=== PATIENT | male | born 1945 | race Caucasian/White ===

== ENCOUNTER 2024-07-25 12:57 | Inpatient (IN) ==
[2024-07-25 17:15] LABS: ABS Basophils 0.1 10^3/uL (0.0-0.1); ABS Eosinophils 0.4 10^3/uL (0.0-0.5); ABS Lymphocytes 3.4 10^3/uL (1.0-4.8); ABS Monocytes 0.7 10^3/uL (0.0-1.1); ABS Nucleated RBC 0.01 10^3/ul; Eosinophil % 4.4 %; Hematocrit 45.5 % (38-53); Hemoglobin 15.6 g/dL (13.2-16.3); Lymphocyte % 35.7 %; Mean Corpuscular Hemoglobin 32.7 pg (27-33); Mean Corpuscular Hgb Conc 34.3 g/dL (31-36); Mean Corpuscular Volume 95.2 fL (80-97); Mean Platelet Volume 7.2 fL (7.5-11.2); Nucleated Red Blood Cells % 0.1 %/100WBC (0.0-0.8); Platelet Count 167 10^3/uL (150-450); Red Blood Count 4.78 10^6/uL (4.06-5.63); Red Cell Distribution Width 16.8 % (12-17); White Blood Count 9.6 10^3/uL (3.6-10.2)
[2024-07-25 17:42] LABS: Albumin 4.2 g/dL (3.5-5.7); Albumin/Globulin Ratio 1.3 (1-3); Calcium 10.1 mg/dL (8.6-10.3); Creatinine, Serum 1.22 mg/dL (0.67-1.17); Globulin 3.3 g/dL (2-4); HDL Cholesterol 37.8 mg/dL; Magnesium 1.9 mg/dL (1.9-2.7); Total Bilirubin 0.5 mg/dL (0.2-1.0); Total Protein 7.5 g/dL (6.4-8.9); eGFR CKD-EPI 59.6 (>60)
[2024-07-25 18:08] LABS: TSH Ultra Thyroid Stim Horm 5.45 mcIU/mL (0.34-5.60)
[2024-07-25] MEDS: Enoxaparin 40 MG/0.4 ML SYR SUBCUT SCH (18:11)
[2024-07-25] MEDS: Empagliflozin 25 MG TAB PO SCH (18:11)
[2024-07-25] MEDS: CMC:Ranolazine 500 mg TAB ER (NF) PO SCH (21:04)
[2024-07-26 06:15] LABS: Hematocrit 41.9 % (38-53); Hemoglobin 14.3 g/dL (13.2-16.3); Mean Corpuscular Hgb Conc 34.1 g/dL (31-36); Mean Platelet Volume 7.6 fL (7.5-11.2); Platelet Count 156 10^3/uL (150-450); Red Blood Count 4.46 10^6/uL (4.06-5.63); Red Cell Distribution Width 17.1 % (12-17); White Blood Count 10.8 10^3/uL (3.6-10.2)
[2024-07-26 06:43] LABS: Calcium 9.1 mg/dL (8.6-10.3); Creatinine, Serum 1.09 mg/dL (0.67-1.17); Magnesium 1.8 mg/dL (1.9-2.7); eGFR CKD-EPI 68.2 (>60)
[2024-07-26] MEDS: Magnesium Sulfate 2 gm BAG 2 GM/50 ML BAG IVPB ONE (08:05)
[2024-07-26] MEDS ORDERED: Lorazepam PYXIS KEY PRN (09:10)
[2024-07-26] MEDS: LORazepam 2 mg VIAL 1 ml IV PUSH PRN (14:09)
[2024-07-26] MEDS: Sulfur Hexaflouride MICROSPHR 25 MG VIAL IV PRN (14:34)
[2024-07-26 17:25] LABS: Folate 10.16 ng/mL (5.90-24.80)
[2024-07-26 19:22] LABS: Urine Appearance Clear; Urine Bacteria Absent /HPF (Absent); Urine Bilirubin Negative (Negative); Urine Blood Negative (Negative); Urine Color Light-Yellow; Urine Glucose 4+ (>=1000 mg/dL) (Negative); Urine Ketones Negative (Negative); Urine Nitrite Negative (Negative); Urine Protein 1+ (>=30 mg/dL) (Negative); Urine Red Blood Cell Trace(0-2/hpf) /HPF (0-Trace); Urine Squamous Epithelial Cell Present /HPF (Absent); Urine Urobilinogen Negative (Negative); Urine White Blood Cell 1+(6-10/hpf) /HPF (0-Trace)
[2024-07-27 06:15] LABS: Hematocrit 42.1 % (38-53); Hemoglobin 14.3 g/dL (13.2-16.3); Mean Corpuscular Hemoglobin 32.2 pg (27-33); Mean Corpuscular Hgb Conc 33.9 g/dL (31-36); Mean Corpuscular Volume 94.8 fL (80-97); Mean Platelet Volume 7.7 fL (7.5-11.2); Platelet Count 158 10^3/uL (150-450); Red Blood Count 4.44 10^6/uL (4.06-5.63); Red Cell Distribution Width 16.6 % (12-17); White Blood Count 11.4 10^3/uL (3.6-10.2)
[2024-07-27 06:30] LABS: Calcium 9.2 mg/dL (8.6-10.3); Creatinine, Serum 1.21 mg/dL (0.67-1.17); Magnesium 2.2 mg/dL (1.9-2.7); Potassium 4.4 mmol/L (3.5-5.0); eGFR CKD-EPI 60.2 (>60)
[2024-07-27] MEDS: Polyethylene Glycol 3350 17 GM PACKET PO PRN (12:33)
[2024-07-28 07:22] LABS: Hematocrit 41.3 % (38-53); Hemoglobin 14.1 g/dL (13.2-16.3); Mean Corpuscular Hemoglobin 32.3 pg (27-33); Mean Corpuscular Hgb Conc 34.1 g/dL (31-36); Mean Corpuscular Volume 94.7 fL (80-97); Mean Platelet Volume 7.5 fL (7.5-11.2); Platelet Count 158 10^3/uL (150-450); Red Blood Count 4.36 10^6/uL (4.06-5.63); Red Cell Distribution Width 16.4 % (12-17); White Blood Count 14.4 10^3/uL (3.6-10.2)
[2024-07-28 07:37] LABS: INR 1.15 (0.85-1.14)
[2024-07-28 07:42] LABS: Calcium 9.2 mg/dL (8.6-10.3); Creatinine, Serum 1.36 mg/dL (0.67-1.17); Magnesium 2.1 mg/dL (1.9-2.7); Potassium 4.6 mmol/L (3.5-5.0); eGFR CKD-EPI 52.3 (>60)
[2024-07-28 11:46] LABS: Body Fluid Source Cerebral Spinal
[2024-07-28 12:06] LABS: Body Fluid Appearance Clear; Body Fluid Color Colorless
[2024-07-28] MEDS: NS 0.9% 500 ml BAG 500 ML IV ONE (12:06)
[2024-07-28 12:07] LABS: CSF Tube # 4
[2024-07-28 12:12] LABS: RPR Nonreactive (Nonreactive)
[2024-07-28 12:18] LABS: CSF Glucose 113 mg/dL (40-70)
[2024-07-28 13:07] LABS: CSF Body Fluid WBC 0 /mcL (0-5)
[2024-07-28 13:28] LABS: Body Fluid Mono 67 %; Body Fluid Total Cells Counted 3
[2024-07-29 05:52] LABS: Hematocrit 38.6 % (38-53); Hemoglobin 13.2 g/dL (13.2-16.3); Mean Corpuscular Hemoglobin 32.3 pg (27-33); Mean Corpuscular Hgb Conc 34.1 g/dL (31-36); Mean Corpuscular Volume 94.9 fL (80-97); Mean Platelet Volume 7.4 fL (7.5-11.2); Platelet Count 150 10^3/uL (150-450); Red Blood Count 4.07 10^6/uL (4.06-5.63); Red Cell Distribution Width 16.4 % (12-17); White Blood Count 13.1 10^3/uL (3.6-10.2)
[2024-07-29 06:22] LABS: Calcium 9.5 mg/dL (8.6-10.3); Creatinine, Serum 1.34 mg/dL (0.67-1.17); Potassium 4.7 mmol/L (3.5-5.0); eGFR CKD-EPI 53.2 (>60)
[2024-07-29] MEDS: Carbidopa/Levodop 25/100 MG TAB PO SCH (21:45)
[2024-07-30 05:57] LABS: ABS Eosinophils 0.2 10^3/uL (0.0-0.5); ABS Lymphocytes 3.1 10^3/uL (1.0-4.8); ABS Monocytes 1.2 10^3/uL (0.0-1.1); ABS Neutrophils 6.8 10^3/uL (1.5-7.6); Eosinophil % 1.7 %; Hematocrit 36.1 % (38-53); Hemoglobin 12.5 g/dL (13.2-16.3); Lymphocyte % 27.5 %; Mean Corpuscular Hemoglobin 32.5 pg (27-33); Mean Corpuscular Hgb Conc 34.6 g/dL (31-36); Mean Platelet Volume 7.7 fL (7.5-11.2); Platelet Count 168 10^3/uL (150-450); Red Blood Count 3.85 10^6/uL (4.06-5.63); Red Cell Distribution Width 16.6 % (12-17); White Blood Count 11.4 10^3/uL (3.6-10.2)
[2024-07-30 06:10] LABS: Calcium 9.2 mg/dL (8.6-10.3); Creatinine, Serum 1.3 mg/dL (0.67-1.17); Phosphorus 3.9 mg/dL (2.5-5.0); Potassium 4.3 mmol/L (3.5-5.0); eGFR CKD-EPI 55.2 (>60)
[2024-07-31 06:20] LABS: Anion Gap 12 mmol/L (2-16); Blood Urea Nitrogen 40 mg/dL (6-24); CO2 Carbon Dioxide 16 mmol/L (22-32); Calcium 8.7 mg/dL (8.6-10.3); Chloride 100 mmol/L (101-111); Creatinine, Serum 1.31 mg/dL (0.67-1.17); Glucose 159 mg/dL (70-100); Sodium 128 mmol/L (135-145); eGFR CKD-EPI 54.7 (>60)
[2024-07-31 07:32] LABS: Magnesium 2.1 mg/dL (1.9-2.7); Potassium Redraw 4.6 mmol/L (3.5-5.0)
[2024-07-31 08:06] LABS: Hematocrit 38.9 % (38-53); Hemoglobin 13.4 g/dL (13.2-16.3); Mean Corpuscular Hemoglobin 32.4 pg (27-33); Mean Corpuscular Hgb Conc 34.4 g/dL (31-36); Mean Corpuscular Volume 94.2 fL (80-97); Mean Platelet Volume 7.3 fL (7.5-11.2); Platelet Count 188 10^3/uL (150-450); Red Blood Count 4.13 10^6/uL (4.06-5.63); Red Cell Distribution Width 15.8 % (12-17); White Blood Count 9.8 10^3/uL (3.6-10.2)
[2024-07-31 16:31] LABS: T.Pallidum TP-PA Negative (Negative)
[2024-08-01 06:12] LABS: Hematocrit 37.2 % (38-53); Mean Corpuscular Hemoglobin 32.7 pg (27-33); Mean Corpuscular Volume 93.4 fL (80-97); Mean Platelet Volume 7.2 fL (7.5-11.2); Platelet Count 210 10^3/uL (150-450); Red Blood Count 3.99 10^6/uL (4.06-5.63); Red Cell Distribution Width 15.7 % (12-17); White Blood Count 8.4 10^3/uL (3.6-10.2)
[2024-08-01 06:44] LABS: Calcium 9.1 mg/dL (8.6-10.3); Creatinine, Serum 1.23 mg/dL (0.67-1.17); Magnesium 2.1 mg/dL (1.9-2.7); Potassium 4.6 mmol/L (3.5-5.0)
[2024-08-01] MEDS: Gadoteridol (CONTRAST) 279.3 MG/ML 10 ML IV ONE (13:31)
[2024-08-01 13:43] LABS: C Reactive Protein 101.96 mg/L (<8.01)
[2024-08-01 16:22] LABS: Erythrocyte Sed Rate 94 mm/Hr (0-19)
[2024-08-01] MEDS: Senna TAB 8.6 mg TAB PO PRN (21:40)
[2024-08-02 06:39] LABS: ABS Basophils 0.1 10^3/uL (0.0-0.1); ABS Eosinophils 0.3 10^3/uL (0.0-0.5); ABS Lymphocytes 3.1 10^3/uL (1.0-4.8); ABS Monocytes 0.8 10^3/uL (0.0-1.1); ABS Neutrophils 4.5 10^3/uL (1.5-7.6); ABS Nucleated RBC 0.01 10^3/ul; Eosinophil % 3.3 %; Hematocrit 40.2 % (38-53); Hemoglobin 13.9 g/dL (13.2-16.3); Lymphocyte % 35.3 %; Mean Corpuscular Hemoglobin 32.5 pg (27-33); Mean Corpuscular Hgb Conc 34.6 g/dL (31-36); Mean Platelet Volume 7.4 fL (7.5-11.2); Nucleated Red Blood Cells % 0.1 %/100WBC (0.0-0.8); Platelet Count 231 10^3/uL (150-450); Red Blood Count 4.27 10^6/uL (4.06-5.63); Red Cell Distribution Width 15.6 % (12-17); White Blood Count 8.8 10^3/uL (3.6-10.2)
[2024-08-02 06:58] LABS: Calcium 9.3 mg/dL (8.6-10.3); Creatinine, Serum 1.26 mg/dL (0.67-1.17); Magnesium 2.2 mg/dL (1.9-2.7); Potassium 4.7 mmol/L (3.5-5.0); eGFR CKD-EPI 57.3 (>60)
[2024-08-02 10:29] LABS: Flag, M-protein Isotype Negative (Negative); Immunoglobulin A (IgA), S 539 mg/dL (61 - 356); Immunoglobulin G (IgG), S 1100 mg/dL (767 - 1590); Immunoglobulin M (IgM), S 35 mg/dL (37 - 286)
[2024-08-03 08:43] LABS: Hematocrit 40.6 % (38-53); Hemoglobin 13.8 g/dL (13.2-16.3); Mean Corpuscular Hemoglobin 31.7 pg (27-33); Mean Corpuscular Hgb Conc 34.1 g/dL (31-36); Mean Corpuscular Volume 93.2 fL (80-97); Mean Platelet Volume 6.9 fL (7.5-11.2); Platelet Count 290 10^3/uL (150-450); Red Blood Count 4.35 10^6/uL (4.06-5.63); Red Cell Distribution Width 15.6 % (12-17); White Blood Count 8.5 10^3/uL (3.6-10.2)
[2024-08-03 09:08] LABS: Calcium 9.5 mg/dL (8.6-10.3); Creatinine, Serum 1.19 mg/dL (0.67-1.17); Magnesium 2.1 mg/dL (1.9-2.7); Potassium 4.3 mmol/L (3.5-5.0); eGFR CKD-EPI 61.4 (>60)
[2024-08-03 10:09] LABS: Rapid COVID-19 Molecular Undetected (Undetected)
[2024-08-03 10:12] VITALS: BP 122/71
[2024-08-07 02:05] LABS: Pyridoxal 5-Phosphate (PLP), P 5 mcg/L (5-50)
== END 2024-08-03 11:40 | DRG 93 ==
LOC: ED 12:57 → EDHOLD 12:57 → SUATTDRO 13:37 → OBSVTOIN 13:37 → MEDTELE 17:49
PROVIDERS: ADMIT Student in an Organized Health Care Education/Training Program; ATTEND Internal Medicine